=== PATIENT | male | born 1970 ===

== ENCOUNTER 2018-01-05 15:57 | Outpatient (REF) | payer BC, SELFPAY ==
[2018-01-05 21:26] LABS: Cholesterol 184 mg/dL (50-200); HDL Cholesterol 51 mg/dL (40-60); LDL CHOLESTEROL 90 mg/dL (<100); Triglyceride 302 mg/dL (30-150)
== END 2018-01-05 16:17 ==
LOC: NCHCN 15:57
PROVIDERS: Referring Provider Registered Nurse; Visit Provider Registered Nurse
DX: Z13.220 Encounter for screening for lipoid disorders (principal); Z00.00 Encounter for general adult medical examination without abnormal findings
CPT/HCPCS: 80061; 83721

== ENCOUNTER 2023-02-10 21:19 | Outpatient (REF) | payer BC, SELFPAY ==
[2023-02-10 21:38] LABS: Calculated LDL 88 mg/dL (<100); Cholesterol 182 mg/dL (<200); HDL Cholesterol 73 mg/dL (40-60); Triglyceride 109 mg/dL (<150)
[2023-02-11 18:26] LABS: PSA, Screening 0.6 ng/mL (<=3.5)
== END 2023-02-10 21:20 | disposition home or self-care (01) ==
LOC: NCHCN 21:19
PROVIDERS: Visit Provider Family Medicine
DX: Z00.00 Encounter for general adult medical examination without abnormal findings (principal)
CPT/HCPCS: 80061; 84153

== ENCOUNTER 2024-07-19 17:58 | Outpatient (REF) | payer BC, SELFPAY ==
[2024-07-21 11:08] LABS: Chlamydia Result Negative (Negative); GC Result Negative (Negative)
== END 2024-07-19 17:59 | disposition home or self-care (01) ==
LOC: NCHCN 17:58
PROVIDERS: Visit Provider Family Medicine
DX: Z11.3 Encounter for screening for infections with a predominantly sexual mode of transmission (principal)
CPT/HCPCS: 87491; 87591